=== PATIENT | female | born 1975 | race Two or more races ===

== ENCOUNTER 2021-05-07 09:30 | Inpatient (IN) | payer OTHER ==
[~2021-05-07] VITALS: Ht 165.1 cm; Wt 65.8 kg
[2021-05-07] MEDS ORDERED: SYNTHROID88 MCG PO (13:20)
[2021-05-07] MEDS ORDERED: TAMOXIFEN CITRA20 MG PO (13:20)
== END 2021-05-11 10:00 | disposition home or self-care (01) | DRG 743 ==
LOC: O/R 05-10 06:18 → SURH 05-10 07:00 → OB/GYN 05-10 20:56
PROVIDERS: ADMIT Obstetrics & Gynecology Gynecologic Oncology; ATTEND Obstetrics & Gynecology Gynecologic Oncology
PROC: 0UT74ZZ Resection of Bilateral Fallopian Tubes, Percutaneous Endoscopic Approach (ICD-10-PCS; 2021-05-10)
PROC: 0UT24ZZ Resection of Bilateral Ovaries, Percutaneous Endoscopic Approach (ICD-10-PCS; 2021-05-10)
PROC: 0UT94ZZ Resection of Uterus, Percutaneous Endoscopic Approach (ICD-10-PCS; principal; 2021-05-10 07:00)
DX: D25.1 Intramural leiomyoma of uterus (principal); D25.2 Subserosal leiomyoma of uterus; Z20.822 Contact with and (suspected) exposure to COVID-19; N72 Inflammatory disease of cervix uteri; N83.11 Corpus luteum cyst of right ovary; N83.12 Corpus luteum cyst of left ovary